=== PATIENT | male | born 1930 | race Caucasian/White ===

== ENCOUNTER 2016-11-03 08:15 | Outpatient (CLI) | payer MEDICARE ==
[2016-11-03 09:39] LABS: ALT (SGPT) 22 U/L (0-55); AST (SGOT) 30 U/L (5-34); Albumin 4.4 g/dL (3.4-4.8); Alkaline Phosphatase 66 U/L (40-150); Anion Gap 14 mmol/L (10-20); BUN (Urea Nitrogen) 20 mg/dL (8.4-25.7); Bilirubin, Total 1.4 mg/dL (0.2-1.2); Calc. Creatinine Clearance 0 mL/min (70-130); Calcium 10.1 mg/dL (7.8-10.44); Carbon Dioxide 28 mmol/L (23-31); Chloride 104 mmol/L (98-107); Cholesterol 129 mg/dL (< 200 Desired); Estimated GFR-MDRD 57; Globulin 2.8 g/dL (2.4-3.5); Glucose 131 mg/dL (83-110); HDL Cholesterol 43 mg/dL (>60 Neg Risk); LDL Cholesterol, Calculated 67 mg/dL; Potassium 4.6 mmol/L (3.5-5.1); Protein, Total 7.2 g/dL (5.8-8.1); Sodium 141 mmol/L (136-145); Triglycerides 93 mg/dL (Less than 150)
== END 2016-11-03 08:16 | disposition home or self-care (01) ==
LOC: BURLAB 08:15
PROVIDERS: ATTEND Internal Medicine Cardiovascular Disease
DX: I25.10 Atherosclerotic heart disease of native coronary artery without angina pectoris (principal); E78.00 Pure hypercholesterolemia, unspecified
CPT/HCPCS: 36415; 80053; 80061

== ENCOUNTER 2017-09-22 08:50 | Inpatient (IN) | payer MEDICARE ==
[2017-09-22] MEDS ORDERED: HYDROcodone/Acetaminophen 7.5/325 mg Tablet PO PRN (14:27)
[2017-09-22] MEDS ORDERED: traMADol HCl 50 MG TAB PO PRN (14:28)
[2017-09-22] MEDS ORDERED: Senokot S 8.6-50 MG TAB PO PRN (14:30)
[2017-09-22] MEDS: Lisinopril 10 MG TAB PO SCH (20:48)
[2017-09-22] MEDS: Pravastatin Sodium 20 MG TAB PO SCH (20:48)
[2017-09-23] MEDS ORDERED: ATENOLOL 12.5 MG PO SCH (09:00)
[2017-09-23] MEDS ORDERED: Atenolol 50 MG TAB PO SCH ×2 (09:00→10:30)
[2017-09-23] MEDS: Hydrochlorothiazide 25 MG TAB PO SCH (09:20)
[2017-09-23] MEDS: Lisinopril 10 MG TAB PO SCH (21:18)
[2017-09-23] MEDS: Pravastatin Sodium 20 MG TAB PO SCH (21:18)
[2017-09-24] MEDS: Hydrochlorothiazide 25 MG TAB PO SCH (08:24)
[2017-09-24] MEDS: Atenolol 50 MG TAB PO SCH (08:25)
[2017-09-24] MEDS: Lisinopril 10 MG TAB PO SCH (21:00)
[2017-09-24] MEDS: Pravastatin Sodium 20 MG TAB PO SCH (21:00)
[2017-09-25 00:59] VITALS: BMI 27.0
[2017-09-25] MEDS: Atenolol 50 MG TAB PO SCH (09:10)
[2017-09-25] MEDS: Hydrochlorothiazide 25 MG TAB PO SCH (09:11)
[2017-09-25] MEDS: Pravastatin Sodium 20 MG TAB PO SCH (22:31)
[2017-09-25] MEDS: Lisinopril 10 MG TAB PO SCH (22:32)
[2017-09-26] MEDS: Atenolol 50 MG TAB PO SCH (08:37)
[2017-09-26] MEDS: Hydrochlorothiazide 25 MG TAB PO SCH (08:38)
[2017-09-26] MEDS: Pravastatin Sodium 20 MG TAB PO SCH (20:12)
[2017-09-26] MEDS: Lisinopril 10 MG TAB PO SCH (20:12)
[2017-09-27 06:35] VITALS: BP 139/66; TEMP 98.2
[2017-09-27] MEDS: Atenolol 50 MG TAB PO SCH (08:19)
[2017-09-27] MEDS: Hydrochlorothiazide 25 MG TAB PO SCH (08:22)
--- NOTE | 2017-09-28 09:31 | HP ---
PRIMARY CARE PHYSICIAN: Dr. José Beauchamp DATE OF ADMISSION: 09/22/2017 CHIEF COMPLAINT: Physical therapy for right lower extremity weakness, status post revision of right total hip arthroplasty. HISTORY OF PRESENT ILLNESS: Mr. Dawson is an 87-year-old male with history of hypertension, hyperlipidemia, diabetes mellitus, diet controlled and a recurrent right hip dislocation. The patie nt was admitted at [facility] for revision of right total hip arthroplasty. He underwent the procedure on 09/19/2017. His preoperative and postoperative were uncomplicated. Prior to his transfer the patient was participating with physical therapy. He ambulated 256 feet using [employer] s rolling walker. He had poor gait and required minimal assistance, hence was advised to continue ph ysical therapy at [facility]. On admission the patient denies any pain. He ve rbalized a desire to go home immediately after finishing up with his physical therapy. PAST MEDICAL HISTORY: 1. Hypertension. 2. Hyperlipidemia. 3. Diabetes mellitus, diet controlled. 4. Obesity. 5. Coronary artery disease with stent. 6. Chronic obstructive pulmonary disease. 7. Obstructive sleep apnea with CPAP. 8. Peripheral vascular disease. 9. Recurrent right hip dislocation. PAST SURGICAL HISTORY: 1. Multiple surgeries on the right hip. 2. Lumbar laminectomy with fusion. FAMILY HISTORY: Noncontributory. SOCIAL HISTORY: The patient denies tobacco or alcohol use. [facility] [place] [facility] [place] [address] Patient likes to go around with his [employer]. MEDICATIONS: 1. Aspirin 81 mg daily. 2. Atenolol 12.5 mg daily. 3. Hydrochlorothiazide 12.5 mg daily. 4. Lisinopril 5 mg daily. 5. Pravastatin 40 mg at bedtime. REVIEW OF SYSTEMS: GENERAL: No fever, no chills, no significant weight loss or gain. HEENT: No sore throat, no nasal congestion. CARDIOVASCULAR: No chest pain, no edema. PULMONARY: No shortness of breath, no wheezing. ABDOMEN: Mild constipation. Negative for diarrhea. Negative for loss of appetite. MUSCULOSKELETAL: Positive for right hip pain with weakness of the right lower extremity. NEUROLOGIC: No seizures, no focal deficits. PSYCHIATRIC: No anxiety, no depression. PHYSICAL EXAMINATION: VITAL SIGNS: Blood pressure of 152/74, temperature 98.2, respiratory rate of 18, 02 sat 97% at room air, pulse of 64. GENERAL: The patient is alert, oriented, not in respiratory distress. HEENT: Normocephalic, atraumatic. Pupils equally reactive to light. NECK: Supple, negative for lymphadenopathy. CHEST AND LUNGS: Symmetrical expansion. Clear to auscultation bilaterally. HEART: Regular rate and rhythm. Negative for murmur, rubs or gallops. GASTROINTESTINAL: Flat, soft, nontender, normoactive bowel sounds. EXTREMITIES: Right hip showed the incision scar clean, dry, and intact. Positive for mild swelling around the area. Positive decreased range of motion due to pain. No edema. No clubbing, no cyanosi s. PSYCHIATRIC: Appropriate affect and demeanor. LABORATORY: Reviewed. ASSESSMENT: 1. Status post revision of right total hip arthroplasty. 2. Hypertension. 3. Hyperlipidemia. 4. Diabetes mellitus type 2, diet controlled. 5. Coronary artery disease with stent, stable. 6. Chronic obstructive pulmonary disease, stable. 7. Obstructive sleep apnea. 8. Obesity. PLAN: 1. The patient will be evaluated and treated by physical and occupational therapy. 2. Case management to assist with needs prior to his discharge. 3. Reconcile current medications. 4. Anticipate discharge to home once the patient is clinically and safe to transition to home.
== END 2017-09-27 11:38 | disposition home or self-care (01) | DRG 561 ==
LOC: BURMED 11:06
PROVIDERS: ADMIT Family Medicine; ATTEND Family Medicine
DX: Z47.1 Aftercare following joint replacement surgery (principal); J44.9 Chronic obstructive pulmonary disease, unspecified; E11.9 Type 2 diabetes mellitus without complications; T84.020D Dislocation of internal right hip prosthesis, subsequent encounter; I10 Essential (primary) hypertension; Z96.641 Presence of right artificial hip joint; E78.5 Hyperlipidemia, unspecified; I25.10 Atherosclerotic heart disease of native coronary artery without angina pectoris; G47.33 Obstructive sleep apnea (adult) (pediatric); E66.9 Obesity, unspecified
CPT/HCPCS: 36416; G8978-GP-CK; G8979-GP-CI; G8987-GO-CK; G8988-GO-CI

== ENCOUNTER 2018-12-29 07:40 | Outpatient (CLI) | payer MEDICARE ==
[2018-12-29 09:18] LABS: ALT (SGPT) 20 U/L (8-55); AST (SGOT) 24 U/L (5-34); Albumin 4.2 g/dL (3.4-4.8); Alkaline Phosphatase 66 U/L (40-150); Anion Gap 14 mmol/L (10-20); BUN (Urea Nitrogen) 22 mg/dL (8.4-25.7); Calc. Creatinine Clearance 0 mL/min (70-130); Carbon Dioxide 27 mmol/L (23-31); Cardiac Risk 2.9 (Less than 4.5); Chloride 105 mmol/L (98-107); Cholesterol 127 mg/dl (< 200 Desired); Estimated GFR-MDRD 67; Globulin 2.5 g/dL (2.4-3.5); Glucose 131 mg/dL (83-110); HDL Cholesterol 44 mg/dL (>60 Neg Risk); LDL Cholesterol, Calculated 63 mg/dL; Potassium 4.1 mmol/L (3.5-5.1); Protein, Total 6.7 g/dL (5.8-8.1); Sodium 142 mmol/L (136-145); Triglycerides 102 mg/dL (Less than 150)
== END 2018-12-29 07:41 | disposition home or self-care (01) ==
LOC: BURLAB 07:40
PROVIDERS: ATTEND Internal Medicine Cardiovascular Disease
DX: E78.00 Pure hypercholesterolemia, unspecified (principal)
CPT/HCPCS: 36415; 80053; 80061